=== PATIENT | male | born 2000 | race Two or more races ===

== ENCOUNTER 2020-03-25 02:28 | Emergency (ER) | payer BC, MEDICAID ==
[~2020-03-25] VITALS: Ht 180.3 cm; Wt 72.6 kg
[2020-03-25 02:35] VITALS: BP 109/72
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
--- NOTE | 2020-03-25 03:00 | NUR ---
ED Nurse Note: [employer] at bedside interrogating patient.
[2020-03-25] MEDS ORDERED: Neosporin Oint Ud Pkt TOPIC ONE (03:15)
--- NOTE | 2020-03-25 03:18 | NUR ---
ED Nurse Note: x6 sutures on left knee, Site wrapped with dry gauze and Kerlix.
--- NOTE | 2020-03-25 03:20 | NUR ---
ED Nurse Note: civil c[employer] technician at bedside performing knee xray.
[2020-03-25] MEDS ORDERED: CEPHALEXIN500 MG ORAL (03:21)
[2020-03-25] MEDS ORDERED: IBUPROFEN600 M1 ORAL (03:21)
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
[2020-03-25 03:34] VITALS: BP 124/86
--- NOTE | 2020-03-25 03:34 | NUR ---
ER DISCHARGE NOTE: Patient is cleared to be discharged per ERMD. EDMD placed x6 sutures to left knee and wrapped in dry gauze and Kerlix. Extra supplies to change dressing given to pt, DC paperwork and paper prescriptions given to pt. pt is aox4, on room air, with stable vital signs. pt is able to ambulate with steady gait. pt took all belongings.
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
[2020-03-25] MEDS ORDERED: NORCO 5-325 TA1 EAC1 ORAL (23:35)
== END 2020-03-25 03:45 | disposition home or self-care (01) ==
LOC: EDBD 02:28 → EMR 02:43
DX: S81.012A Laceration without foreign body, left knee, initial encounter (principal); V43.52XA Car driver injured in collision with other type car in traffic accident, initial encounter; Y92.410 Unspecified street and highway as the place of occurrence of the external cause
CPT/HCPCS: 12002; 73564; Z7502; 99283

== ENCOUNTER 2020-03-25 22:15 | Emergency (ER) | payer BC, MEDICAID ==
[~2020-03-25] VITALS: Ht 180.3 cm; Wt 68.0 kg
[~2020-03-25 22:15] MED LIST: CEPHALEXIN500 MG ORAL; IBUPROFEN600 M1 ORAL
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
[2020-03-25 22:44] LABS: APPEARANCE,URINE CLOUDY; BASOPHILS % (AUTO) 0.8 % (0.0-2.0); BILIRUBIN, URINE 1+ (NEGATIVE); EOSINOPHILS % (AUTO) 2.7 % (0.0-3.0); GLUCOSE, URINE (UA) NEGATIVE (NEGATIVE); HEMATOCRIT 46.2 % (42.0-52.0); HEMOGLOBIN 16.3 G/DL (14.2-18.0); KETONES,URINE 2+ (NEGATIVE); LEUKOCYTE ESTERASE ,URINE 2+ (NEGATIVE); LYMPHOCYTES % (AUTO) 18.1 % (20.0-45.0); MEAN CORPUSCULAR VOLUME 93 FL (80-99); MONOCYTES % (AUTO) 9.1 % (1.0-10.0); NEUTROPHILS % (AUTO) 69.3 % (45.0-75.0); NITRITE,URINE NEGATIVE (NEGATIVE); PH,URINE 7 (4.5-8.0); PLATELET COUNT 241 K/UL (150-450); PROTEIN,URINE 3+ (NEGATIVE); RED BLOOD COUNT 4.97 M/UL (4.70-6.10); RED CELL DISTRIBUTION WIDTH 12.6 % (11.6-14.8); UROBILINOGEN,URINE 4 MG/DL (0.0-1.0); WHITE BLOOD COUNT 12.9 K/UL (4.8-10.8)
[2020-03-25] MEDS ORDERED: HYDROcodone/Acetamin 5/325 tab ORAL ONE (22:45)
[2020-03-25 22:49] LABS: COLOR,URINE RED
[2020-03-25 22:54] LABS: ANION GAP 9 mmol/L (5-15); BLOOD UREA NITROGEN 9 mg/dL (7-18); CALCIUM 9.2 MG/DL (8.5-10.1); CARBON DIOXIDE 26 MMOL/L (21-32); CHLORIDE 102 MMOL/L (98-107); POTASSIUM 3.6 MMOL/L (3.5-5.1); SODIUM 137 MMOL/L (136-145)
--- NOTE | 2020-03-25 23:14 | Diagnostic Imaging Report ---
EXAM: CT Abdomen and Pelvis Without Intravenous Contrast CLINICAL HISTORY: TRAUMA TECHNIQUE: Axial computed tomography images of the abdomen and pelvis without intravenous contrast. CTDI is 33.6 mGy and DLP is 191.20 mGy-cm. One or more of the following dose reduction techniques were used: automated exposure control, adjustment of the mA and/or kV according to patient size, use of iterative reconstruction technique. Coronal and sagittal reformatted images were created and reviewed. COMPARISON: No relevant prior studies available. FINDINGS: Limitations: Study substantially limited due to lack of IV contrast. Evaluation for visceral injury is extremely limited. Lung bases: Unremarkable. No mass. No consolidation. ABDOMEN: Liver: Unremarkable. Gallbladder and bile ducts: Unremarkable. No calcified stones. No ductal dilation. Pancreas: Unremarkable. No ductal dilation. Spleen: Unremarkable. No splenomegaly. Adrenals: Unremarkable. No mass. Kidneys and ureters: Unremarkable. No obstructing stones. No hydronephrosis. Stomach and bowel: Short segment 3 cm length enteroenteric intussusception of no further clinical concern, no obstruction, no ischemia. This is a common and almost always incidental finding. No further follow-up required for this finding. Remaining bowel structures are normal. No mucosal thickening. PELVIS: Appendix: No findings to suggest acute appendicitis. Bladder: Unremarkable. No stones. Reproductive: Unremarkable as visualized. ABDOMEN and PELVIS: Intraperitoneal space: Unremarkable. No free air. No significant fluid collection. Bones/joints: No acute fracture. No dislocation. Soft tissues: Unremarkable. Vasculature: Unremarkable. No abdominal aortic aneurysm. Lymph nodes: Unremarkable. No enlarged lymph nodes. IMPRESSION: 1. Study substantially limited due to lack of IV contrast. 2. Evaluation for visceral injury is extremely limited. 3. No acute traumatic injury. 4. Incidental note of enteroenteric short segment intussusception without additional complication, this requires no additional follow-up and is almost certainly incidental. 5. Otherwise unremarkable study.
[2020-03-25 23:30] VITALS: BP 119/79
--- NOTE | 2020-03-25 23:30 | NUR ---
ER DISCHARGE NOTE: Patient is cleared to be discharged per ERMD, pt is aox4, on room air, with stable vital signs. pt was given dc and prescription instructions, pt was able to verbalize understanding, pt id band and iv site removed without complications. pt is able to ambulate with steady gait with crutches which were given and pt return demonstrates proper use and safety measures. pt took all belongings.with spouse.
[2020-03-25 23:35] VITALS: BP 113/87
[2020-03-25] MEDS ORDERED: NORCO 5-325 TA1 EAC1 ORAL (23:35)
== END 2020-03-25 23:35 | disposition home or self-care (01) ==
LOC: EMR 22:31
DX: S72.435A Nondisplaced fracture of medial condyle of left femur, initial encounter for closed fracture (principal); R31.9 Hematuria, unspecified; S81.012A Laceration without foreign body, left knee, initial encounter; R10.9 Unspecified abdominal pain; V43.52XA Car driver injured in collision with other type car in traffic accident, initial encounter; Y92.410 Unspecified street and highway as the place of occurrence of the external cause
CPT/HCPCS: 36415; 74176; 80048; 81003; 85025; Z7502; 99284